=== PATIENT | female | born 1985 | race African-American/Black ===

== ENCOUNTER 2024-07-25 10:22 | Emergency (ER) | payer OTHER ==
[~2024-07-25] VITALS: Ht 157.5 cm; Wt 105.0 kg
[~2024-07-25 10:22] MED LIST: NOCURR
[2024-07-25 10:44] VITALS: TEMP 97.4
[2024-07-25] MEDS ORDERED: DOXY-354 PO (11:17)
[2024-07-25] MEDS ORDERED: CLIN300C58 PO (11:17)
[2024-07-25] MEDS ORDERED: IBUP-1554 PO (11:17)
[2024-07-25] MEDS ORDERED: ACET-66 PO (11:17)
[2024-07-25] MEDS: DOXYCYCLINE HYCLATE 100 MG TABLET PO ONE (11:30)
[2024-07-25 12:14] VITALS: BP 117/82; PULSE 84; RESP 17; O2SAT 99
== END 2024-07-25 12:20 | disposition home or self-care (01) ==
LOC: EMS 10:25
DX: L02.416 Cutaneous abscess of left lower limb (principal); F17.210 Nicotine dependence, cigarettes, uncomplicated; Z88.0 Allergy status to penicillin
CPT/HCPCS: 10160; 99284; Z7502; Z7610

== ENCOUNTER 2024-07-27 10:36 | Emergency (ER) | payer OTHER ==
[~2024-07-27] VITALS: Ht 157.5 cm; Wt 95.5 kg
[~2024-07-27 10:36] MED LIST changes: +ACET-66 PO; +CLIN300C58 PO; +DOXY-354 PO; +IBUP-1554 PO
[2024-07-27 10:41] VITALS: TEMP 97.9
[2024-07-27 10:45] VITALS: BP 111/54; PULSE 71; RESP 17; O2SAT 98
[2024-07-27] MEDS ORDERED: SULF-261 PO (10:52)
== END 2024-07-27 11:41 | disposition home or self-care (01) ==
LOC: EMS 10:38
DX: L02.416 Cutaneous abscess of left lower limb (principal); F17.210 Nicotine dependence, cigarettes, uncomplicated; Z88.0 Allergy status to penicillin
CPT/HCPCS: 99283; Z7502